=== PATIENT | female | born 1960 | race Caucasian/White ===

== ENCOUNTER → 2017-01-14 | Outpatient (CLI) | payer MEDICAID | END | disposition home or self-care (01) | LOC: RD 12:33 | DX: M25.512 Pain in left shoulder (principal); M79.645 Pain in left finger(s) ==

== ENCOUNTER → 2017-01-31 | Outpatient (CLI) | payer MEDICAID | END | disposition home or self-care (01) | LOC: RD 11:22 | DX: M54.5 Low back pain (principal) ==